=== PATIENT | male | born 1995 | race Caucasian/White ===

== ENCOUNTER 2017-07-26 11:58 | Emergency (ER) | payer BC, OTHER ==
[2017-07-26] MEDS ORDERED: Lidocaine 1% 30 ML SDV INJECT ONE (12:18)
[2017-07-26] MEDS ORDERED: Bacitracin Oint 1 GM U/D Packet TOP ONE (12:18)
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
== END 2017-07-26 13:09 | disposition home or self-care (01) ==
LOC: DL.ED 11:58
DX: S01.411A Laceration without foreign body of right cheek and temporomandibular area, initial encounter (principal); Z88.5 Allergy status to narcotic agent; W22.8XXA Striking against or struck by other objects, initial encounter
CPT/HCPCS: 12011; 90471; 99282

== ENCOUNTER → 2017-12-24 | Day surgery (SDC) | payer OTHER ==
[~2017-12-24] MED LIST: Benzocaine 20% Oral Spray 59.2 ML Canister MUCMEM ONE; Benzocaine 20% Oral Spray 59.2 ML Canister ONE; Metoclopramide 10 MG/2 ML SDV IVPUSH ONE; Midazolam 1 MG/ML 2 ML SDV IV ONE; Midazolam 1 MG/ML 2 ML SDV ONE; Ondansetron 4 MG/2 ML SDV IV ONE; Pantoprazole 40 MG Vial IVPUSH ONE; Sodium Chloride 0.9% 1,000 ML IV ONE; Sodium Chloride 0.9% 10 ML Syringe FLUSH PRN; diphenhydrAMINE 50 MG/ML SDV IVPUSH ONE
--- NOTE | 2017-12-24 08:13 | EDM.PDOC ---
ED HPI GENERAL MEDICAL PROBLEM - General Chief Complaint: Gastrointestinal Problem Stated Complaint: VOMITTING X SEVERAL DAYS, CHEST TIGHTNESS Time Seen by Provider: 12/24/17 08:13 Source of Information: Reports: Patient, Family (Parents), RN, RN Notes Reviewed History Limitations: Reports: No Limitations - History of Present Illness INITIAL COMMENTS - FREE TEXT/NARRATIVE: Pt c/o onset of epigastric discomfort with nausea and vomiting last week. He began feeling an uneasy feeling in his chest after eating a few days after the onset, so he went to the clinic and was treated with zofran and prilosec. The medication has not helped, in fact he feels worse. For the last few days everytime he eats he gets the pain or "discomfort" across the mid-lower chest, then vomits. He denies any abdominal pain at this time, but a few months back was having right upper quadrant pains, occ. with nausea, but it went away. He denies fever, chills, radiating pain, change in bowel or bladder function, bloody or coffee ground emesis. Denies wt gain or loss. 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) (Prilosec, Zofran) Mid-Sternal Pain Score (Numeric/FACES): 5 - Related Data Allergies Allergy/AdvReac Type Severity Reaction Status Date / Time codeine Allergy Unknown Rash Verified 12/24/17 09:23 Home Meds: Home Meds Omeprazole/Sodium Bicarbonate [Omeppi 40 mg-1,100 mg Capsule] 1 each PO DAILY [History] Ondansetron HCl [Zofran] 4 mg PO DAILY 12/24/17 [History] Past Medical History - Past Health History Medical/Surgical History: Denies Medical/Surgical History Social & Family History - Family History Family Medical History: Noncontributory - Tobacco Use Smoking Status *Q: Never Smoker - Alcohol Use Alcohol Use History: No - Living Situation & Occupation Living situation: Reports: with Family ED ROS GENERAL - Review of Systems Review Of Systems: ROS reveals no pertinent complaints other than HPI. ED EXAM, GI/ABD - Physical Exam Exam: See Below Exam Limited By: No Limitations General Appearance: Alert, WD/WN, No Apparent Distress, Active Emesis Eyes: Bilateral: Normal Appearance (no scleral icterus), EOMI Nose: Normal Inspection, Normal Mucosa, No Blood Throat/Mouth: Normal Inspection, Normal Lips, Normal Teeth, Normal Gums, Normal Oropharynx, Normal Voice, No Airway Compromise Head: Atraumatic, Normocephalic Neck: Normal Inspection, Supple, Non-Tender, Full Range of Motion. No: Lymphadenopathy (L), Lymphadenopathy (R) Respiratory/Chest: No Respiratory Distress, Lungs Clear, Normal Breath Sounds, No Accessory Muscle Use, Chest Non-Tender Cardiovascular: Normal Peripheral Pulses, Regular Rate, Rhythm, No Edema, No Gallop, No JVD, No Murmur, No Rub GI/Abdominal Exam: Normal Bowel Sounds, Soft, Non-Tender, No Organomegaly, No Distention, No Abnormal Bruit, No Mass (Male) Exam: Deferred Rectal (Males) Exam: Deferred Back Exam: Normal Inspection, Full Range of Motion, NT Extremities: Normal Inspection, Normal Range of Motion, Non-Tender, Normal Capillary Refill, No Pedal Edema Neurological: Alert, Oriented, CN II-XII Intact, Normal Cognition, Normal Gait, No Motor/Sensory Deficits Psychiatric: Normal Affect, Normal Mood Skin Exam: Warm, Dry, Intact, Normal Color, No Rash EKG INTERPRETATION EKG Date: 12/24/17 Time: 08:43 Rhythm: Other (Sinus Gregory, Sinus arrhythmia) Rate (Beats/Min): 50 Avinger: Normal P-Wave: Present QRS: Normal ST-T: Normal QT: Normal Comparison: NA - No Prior EKG Course - Vital Signs Last Recorded V/S: Last Vital Signs Temp 36.2 C 12/24/17 07:45 Pulse 97 12/24/17 11:13 Resp 19 12/24/17 11:13 BP 96/83 12/24/17 11:13 Pulse Ox 98 12/24/17 11:13 - Orders/Labs/Meds Orders: Active Orders 24 hr Category Date Time Status EKG 12 Lead [EKG Documentation Completion] [RC] STAT Care 12/24/17 08:20 Active Peripheral IV Care [RC] . DIRECTED Care 12/24/17 08:22 Active NPO Now [Nothing per Oral Now Diet] [DIET] Diet 12/24/17 Lunch Active Abdomen Ltd [US] Stat Exams 12/24/17 09:12 Taken CULTURE STREP A CONFIRMATION [] Stat Lab 12/24/17 08:40 Results STREP SCRN A RAPID W CULT CONF [RM] Stat Lab 12/24/17 08:40 Results Sodium Chloride 0.9% [Saline Flush] Med 12/24/17 08:22 Active 10 ml FLUSH ASDIRECTED PRN Peripheral IV Insertion Adult [OM.PC] Stat Oth 12/24/17 08:19 Ordered Medication Orders Sodium Chloride (Saline Flush) 10 ml FLUSH ASDIRECTED PRN PRN Reason: Keep Vein Open Last Admin: 12/24/17 09:01 Dose: 10 ml Labs: Laboratory Tests 12/24/17 12/24/17 12/24/17 Range/Units 08:37 08:37 08:37 WBC 10.6 H (5.0-10.0) 10^3/uL RBC 5.78 (4.6-6.2) 10^6/uL Hgb 18.4 H (14.0-18.0) g/dL Hct 53.1 (40.0-54.0) % MCV 91.9 (80-100) fL MCH 31.8 (27.0-34.0) pg MCHC 34.7 (33.0-35.0) g/dL Plt Count 235 (150-450) 10^3/uL Neut % (Auto) 81.7 H (42.2-75.2) % Lymph % (Auto) 10.8 L (20.5-50.1) % Vance % (Auto) 6.9 (2-8) % Eos % (Auto) 0.5 L (1.0-3.0) % Baso % (Auto) 0.1 (0.0-1.0) % Sodium 138 (135-145) mmol/L Potassium 3.5 L (3.6-5.0) mmol/L Chloride 100 L (101-111) mmol/L Carbon Dioxide 21.0 (21.0-31.0) mmol/L Anion Gap 20.5 BUN 17 (7-18) mg/dL Creatinine 1.1 (0.6-1.3) mg/dL Est Cr Clr Drug Dosing 109.05 mL/min Estimated GFR (MDRD) > 60 BUN/Creatinine Ratio 15.45 Glucose 107 H (74-105) mg/dL Calcium 10.7 H (8.4-10.2) mg/dl Total Bilirubin 2.0 H (0.2-1.0) mg/dL AST 22 (10-42) IU/L ALT 14 (10-60) IU/L Alkaline Phosphatase 77 (42-121) IU/L Troponin I < 0.02 (0.00-0.02) ng/ml C-Reactive Protein < 0.5 (0.0-1.3) mg/dL Total Protein 9.2 H (6.7-8.2) g/dl Albumin 5.5 (3.2-5.5) g/dl Globulin 3.7 Albumin/Globulin Ratio 1.49 Amylase 45 (28-100) U/L Lipase 21 L (22-51) U/L Meds: Medications Generic Name Dose Route Start Last Admin Trade Name Freq PRN Reason Stop Dose Admin Sodium Chloride 10 ml 12/24/17 08:22 12/24/17 09:01 Saline Flush FLUSH 10 ml ASDIRECTED PRN Administration Keep Vein Open Discontinued Medications Generic Name Dose Route Start Last Admin Trade Name Freq PRN Reason Stop Dose Admin Benzocaine Confirm 12/24/17 10:38 Hurricaine 20% [place] Administered 12/24/17 10:39 Dose 59.2 ml .ROUTE .STK-MED ONE Benzocaine 1 ml 12/24/17 11:04 12/24/17 11:04 Hurricaine 20% [place] MUCMEM 12/24/17 11:05 1 ml .STK-MED ONE Administration Diphenhydramine HCl 25 mg 12/24/17 12:54 Benadryl IVPUSH 12/24/17 12:55 ONETIME ONE Sodium Chloride 1,000 mls @ 999 mls/hr 12/24/17 08:24 12/24/17 08:53 Normal Saline IV 12/24/17 09:24 999 mls/hr .BOLUS ONE Administration Metoclopramide HCl 10 mg 12/24/17 12:54 Reglan IVPUSH 12/24/17 12:55 ONETIME ONE Midazolam HCl Confirm 12/24/17 10:38 Versed 1 Mg/Ml Administered 12/24/17 10:39 Dose 6 mg .ROUTE .STK-MED ONE Midazolam HCl 2 mg 12/24/17 11:01 12/24/17 11:01 Versed 1 Mg/Ml IV 12/24/17 11:02 2 mg .STK-MED ONE Administration Midazolam HCl 1 mg 12/24/17 11:03 12/24/17 11:03 Versed 1 Mg/Ml IV 12/24/17 11:04 1 mg .STK-MED ONE Administration Midazolam HCl 1 mg 12/24/17 11:04 12/24/17 11:04 Versed 1 Mg/Ml IV 12/24/17 11:05 1 mg .STK-MED ONE Administration Ondansetron HCl 4 mg 12/24/17 08:24 12/24/17 08:54 Zofran IV 12/24/17 08:25 4 mg ONETIME ONE Administration Ondansetron HCl 4 mg 12/24/17 10:40 12/24/17 10:48 Zofran IV 12/24/17 10:41 Not Given ONETIME ONE Pantoprazole Sodium 40 mg 12/24/17 08:24 12/24/17 08:55 Protonix Iv IVPUSH 12/24/17 08:25 40 mg ONETIME ONE Administration - Radiology Interpretation Free Text/Narrative:: EXAM: XR Abdomen, 2 Views EXAM DATE/TIME: 12/24/2017 9:11 AM CLINICAL HISTORY: 22 years old, male; Pain; Abdominal pain; Patient HX: Recurrent vomiting, upper abdomen and chest pain. Bilirubin of 2. TECHNIQUE: Frontal view of the abdomen/pelvis with upright view of the abdomen. COMPARISON: No relevant prior studies available. FINDINGS: Gastrointestinal tract: The small bowel is not significantly air-distended or with air-fluid levels. Air and stool are present within large bowel. Intraperitoneal space: No free air is evident. Bones/joints: Unremarkable for age. IMPRESSION: Nonspecific bowel gas pattern. CHEST XR IMPRESSION: No evidence for acute pulmonary disease, allowing for incomplete inclusion of the lung apices. [facility] Final Radiology Report Call: [phone] assistance Online chat: [email or web address] Name: SCOTTY SHETH Age: 22Years M Date: 12/24/2017 SSN: -- : [id number] Study: US ABDOMEN LTD Requesting Physician: ACOSTA SILVA Images: 48 Addl Studies: Provided Clinical History: Contrast: Without Contrast Medium: Contrast Amount: Contrast Method: Page 1 of 2 EXAM: US Abdomen Limited, Right Upper Quadrant EXAM DATE/TIME: 12/24/2017 9:36 AM CLINICAL HISTORY: 22 years old, male; Pain; Abdominal pain; Epigastric TECHNIQUE: Real-time ultrasound of the abdomen with image documentation. Examination is focused on the right upper quadrant. COMPARISON: CR - Abdomen 2V AP Upright Decub 12/24/2017 9:11 AM FINDINGS: Liver: The liver is homogeneous in echotexture, without demonstrated mass or intrahepatic biliary ductal dilatation. Gallbladder: The gallbladder is without demonstrated stones, sludge or wall thickening, and there is no pericholecystic fluid. Sonographic Egan sign was not commented on. Common bile duct: The common bile duct is normal in size for a patient of this age at 4.2 mm. Pancreas: Visualized portions of the pancreas, not fully including the tail, are without demonstrated abnormality. Right kidney: The right kidney is without hydronephrosis. It was not measured. There is a 1.3 x 1.2 x 1.4 cm hypoechoic, shadowing lesion in the interpolar aspect. IMPRESSION: 1. 1.4 cm hypoechoic right renal lesion, not well characterized. Recommend further evaluation with renal protocol CT or MRI. 2. No cholelithiasis or biliary ductal dilatation. SCOTTY SHETH | Final Radiology Report CONFIDENTIALITY STATEMENT This report is intended only for use by the referring physician, and only in accordance with law. If you received this in error, call [phone]. Page 2 of 2 Thank you for allowing us to participate in the care of your patient. Dictated and Authenticated by: Jono Kaiser MD 12/24/2017 10:20 AM Central Time ([place] & [place]) - Re-Assessments/Exams Free Text/Narrative Re-Assessment/Exam: 12/24/17 10:[address] Aleman to evaluate the pt. He plans to take the pt for EGD today. 12/24/17 12:55 EGD performed in same day surg. by Dr. Aleman, with verbal report of no acute findings. See Dr. Aleman's EGD/OP report. Departure - Departure Time of Disposition: 12:56 (to same day surg. with Dr. Aleman, then back to ER when done) Disposition: Home, Self-Care 01 Condition: Fair Clinical Impression: Vomiting, Gastric dysmotility - Discharge Information *PRESCRIPTION DRUG MONITORING PROGRAM REVIEWED*: Not Applicable *COPY OF PRESCRIPTION DRUG MONITORING REPORT IN PATIENT DAVID: Not Applicable - My Orders Last 24 Hours: My Active Orders 12/24/17 08:19 Peripheral IV Insertion Adult [OM.PC] Stat 12/24/17 08:20 EKG 12 Lead [EKG Documentation Completion] [RC] STAT 12/24/17 08:22 Peripheral IV Care [RC] . DIRECTED Sodium Chloride 0.9% [Saline Flush] 10 ml FLUSH ASDIRECTED PRN 12/24/17 08:40 CULTURE STREP A CONFIRMATION [RM] Stat STREP SCRN A RAPID W CULT CONF [RM] Stat 12/24/17 09:12 Abdomen Ltd [US] Stat 12/24/17 Lunch NPO Now [Nothing per Oral Now Diet] [DIET] - Assessment/Plan Last 24 Hours: My Active Orders 12/24/17 08:19 Peripheral IV Insertion Adult [OM.PC] Stat 12/24/17 08:20 EKG 12 Lead [EKG Documentation Completion] [RC] STAT 12/24/17 08:22 Peripheral IV Care [RC] . DIRECTED Sodium Chloride 0.9% [Saline Flush] 10 ml FLUSH ASDIRECTED PRN 12/24/17 08:40 CULTURE STREP A CONFIRMATION [RM] Stat STREP SCRN A RAPID W CULT CONF [RM] Stat 12/24/17 09:12 Abdomen Ltd [US] Stat 12/24/17 Lunch NPO Now [Nothing per Oral Now Diet] [DIET]
[2017-12-24 09:07] LABS: ANION GAP 20.5; CHLORIDE,CL 100 mmol/L (101-111); SODIUM,NA 138 mmol/L (135-145)
--- NOTE | 2017-12-24 11:38 | OR ---
DATE: 12/24/2017 PREOPERATIVE DIAGNOSIS: Persistent nausea and vomiting. POSTOPERATIVE DIAGNOSIS: Persistent nausea and vomiting. PROCEDURE: Esophagogastroduodenoscopy. ANESTHESIA: Conscious sedation with IV Versed. SPECIMEN: Gastric biopsy and duodenal biopsy along with photos. OPERATIVE FINDINGS: Small hiatal hernia of no consequence. Gastric and duodenal anatomy are normal. No evidence of ulcerations, lesions, or infections. RECOMMENDATION: None. INDICATION FOR PROCEDURE: This 22-year-old male has had a 2 to 3-week history of persistent nausea and vomiting. Ultrasound in the emergency room did not show any evidence of gallstones, although he does have some right upper quadrant pain. PROCEDURE IN DETAIL: After adequate preparation, a gastroscope was inserted into the esophagus and passed down to the distal esophagus. He does have a small hiatal hernia, and on retching, has a moderate amount of stomach protruding up into the chest. The patient shows no significant signs of esophagitis. Certainly, there are no masses, lesions, strictures, or obstructions. The scope was advanced into the stomach. Both forward and retroflexed views are done and are normal. The scope was advanced through the pylorus, and the duodenum was also normal. Two random biopsies of the duodenum were taken, and then on withdrawal of the scope, prepyloric antral biopsy of the stomach was taken. A photograph was taken of the hiatal hernia. Air was suctioned from the stomach, and the scope was removed. [facility] /[id number]
--- NOTE | 2017-12-24 19:47 | EKG ---
12/24/2017 - SCOTTY SHETH - TIME: 8:43 a.m. FINDINGS: EKG shows a bradycardia with a heart rate of 50. [facility] /[id number]
== END ==
LOC: DL.ED 07:39 → DL.ENDO 10:46
PROVIDERS: ATTEND Surgery
DX: K29.50 Unspecified chronic gastritis without bleeding (principal); K31.89 Other diseases of stomach and duodenum; K44.9 Diaphragmatic hernia without obstruction or gangrene
CPT/HCPCS: 36415; 43239; 71046; 74021; 76705; 80053; 82150; 83690; 84484; 85025; 86140; 87081; 87430; 93005; 96361; 96374; 96375; 96376; 99284; C9113; J1200; J2250; J2405; J2765; J7030; J7050